=== PATIENT | female | born 1990 | race Two or more races ===

== ENCOUNTER 2019-02-16 07:26 | Emergency (ER) | payer OTHER ==
[2019-02-16 07:33] VITALS: BP 116/89
--- NOTE | 2019-02-16 07:58 | ED Physician Documentation ---
PD HPI SKIN - Stated complaint Stated Complaint: SORE ON CHIN - Chief complaint Chief Complaint: Wound - History obtained from History obtained from: Patient - History of Present Illness Timing - onset: How many days ago (4) Timing - duration: Days (4) Timing - details: Gradual onset, Still present Location: Face Quality / character: Painful, Raised, Swelling. No: Draining Associated symptoms: Headache. 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 She started the Keflex yesterday. She has not had any drainage from the area she has not had any fluctuance. She has no swelling in her face to cause some numbness to the area. Review of Systems Constitutional: denies: Fever Eyes: denies: Decreased vision Ears: denies: Ear pain Nose: reports: Congestion Throat: denies: Oral lesions / sores, Sore throat Cardiac: denies: Chest pain / pressure, Palpitations Respiratory: denies: Dyspnea, Cough PD PAST MEDICAL HISTORY - Past Medical History Past Medical History: No - Present Medications Home Medications: Ambulatory Orders Medication Instructions Recorded Confirmed Cephalexin [Keflex] 500 mg PO TID 02/16/19 02/16/19 Ibuprofen [Motrin] 600 mg PO Q6H PRN 02/16/19 02/16/19 Mupirocin 1 gm TP BID #22 gm 02/16/19 Sulfamethoxazole/Trimethoprim 1 each PO BID #14 tablet 02/16/19 [Sulfamethoxazole-Tmp Ds Tablet] - Allergies Allergies/Adverse Reactions: Allergies Allergy/AdvReac Type Severity Reaction Status Date / Time No Known Drug Allergies Allergy Verified 02/16/19 07:34 - Social History Does the pt smoke?: No Smoking Status: Never smoker PD ED PE NORMAL - Vitals Vital signs reviewed: Yes (hypertensive mild ) - General General: Alert and oriented X 3, No acute distress, Well developed/nourished - HEENT HEENT: Atraumatic, PERRL, EOMI, Other (There is an area to the right chin with swelling tenderness and firmness without fluctuance. 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 PD MEDICAL DECISION MAKING - ED course Complexity details: considered differential, d/w patient ED course: 29-year-old female with an abscess to her the right side of her chin that has not improved overnight with Keflex. On bedside exam with ultrasound there is no drainable collection. We will add in sulfamethoxazole trimethoprim and mupirocin she will continue her warm compresses and we will await ripening or improvement. Departure - Departure Disposition: 01 Home, Self Care Clinical Impression: Abscess Condition: Stable Instructions: ED Stap Infec Abx Tx Only Follow-Up: [facility] [Provider Group] Prescriptions: Mupirocin 1 gm TP BID #22 gm Sulfamethoxazole/Trimethoprim [Sulfamethoxazole-Tmp Ds Tablet] 1 each PO BID #14 tablet
== END 2019-02-16 08:42 | disposition home or self-care (01) ==
LOC: ED 07:26
DX: L02.01 Cutaneous abscess of face (principal)
CPT/HCPCS: 99282; 99284

== ENCOUNTER 2021-09-09 07:42 | Outpatient (CLI) | payer OTHER ==
--- NOTE | 2021-09-09 11:57 | MRI Report ---
PROCEDURE: Wrist RT W/O INDICATIONS: PAIN IN RIGHT HAND AND WRIST TECHNIQUE: Noncontrast coronal proton density fast spin echo and T2 fast spin echo with fat saturation; coronal 3-D gradient echo, axial T1 spin echo and T2 fast spin echo with fat saturation, sagittal T1 spin ech o through the wrist. COMPARISON: None. FINDINGS: Image quality: Excellent. Bones and cartilage: The carpal bones are normally aligned. No bone marrow contusions or fractures. No evidence for avascular necrosis. Overlying cartilage surfaces appear normal. Carpal ligaments: The scapholunate and lunotriquetral ligaments appear intact. In the absence of in tra-articular contrast, the extrinsic carpal ligaments are not well identified. On sagittal images, the pisohamate ligament appears intact. Triangular fibrocartilage complex: The triangular fibrocartilage appears intact. The adjacent menis luna homolog appears normal in the absence of intra-articular contrast. The extensor carpi ulnaris te ndon is normal in location and morphology. Tendons and soft tissues: There is fluid signal surrounding extensor digitorum and indices tendons o lc the dorsal aspect of proximal carpal row concerning for low-grade tenosynovitis. The carpal tunne l structures appear normal, including the median nerve. The ulnar nerve appears normal within Guyon' s canal. Rest of the extensor tendon compartments demonstrate normal morphology, without pathologic t endon sheath fluid. There is suggestion of a small ganglion cyst over volar aspect of radial styloid base and measures 6 x 2 x 5 mm in size. Similar possible ganglion cyst is also noted over dorsal aspe ct of the ulnar styloid base and measures up to 3 x 4 x 3 mm in size. IMPRESSION: 1. Finding is concerning for low-grade tenosynovitis involving extensor digitorum and indices tendons over the dorsal aspect of radial carpal joint and proximal carpal row. Rest of the extensor and flex or tendons are grossly intact. 2. Finding is suggestive of tiny ganglion cysts over volar aspect of radial styloid base and dorsal a spect of ulnar styloid base as above. 3. No marrow edema. No fracture or dislocation. No suspicious intraosseous lesion. 4. Intrinsic and extrinsic wrist ligaments are grossly intact. Triangular fibrocartilage complex is i ntact. Reviewed by: Rajan Garcia MD on 09/09/2021 11:56 AM PST Approved by: Rajan Garcia MD on 09/09/2021 11:56 AM PST Station ID: [id number]
--- NOTE | 2021-09-09 12:15 | MRI Report ---
PROCEDURE: Hand RT W/O INDICATIONS: PAIN IN RIGHT HAND AND WRIST TECHNIQUE: Noncontrast coronal T1 spin echo and T2 fast spin echo with fat saturation, axial proton density fast spin echo and T2 fast spin echo with fat saturation, sagittal T1 spin echo and STIR through the hand and fingers to the level of the middle phalanges of the second through fourth digits. COMPARISON: Concurrent MRI of the wrist. FINDINGS: Image quality: There is mild motion artifact and inhomogeneous fat saturation. Bones: The bones are normally aligned, without marrow contusions or fractures. No discrete bony eros ions. No intra-osseous mass lesions. Soft tissues: There is a cutaneous marker along the volar aspect of the hand between the third and f ourth metacarpals distally in the area of pain. No discrete associated mass or fluid collection ident ified. The subjacent lumbrical muscle demonstrates normal size and signal. Visualized muscles demonst rate normal bulk and internal signal. No intramuscular masses identified. The visualized flexor and extensor tendons appear intact. The carpal tunnel appears within normal limits without abnormal argelia a or mass lesions. The visualized median nerve appears normal in size and signal. The visualized ulna r nerve also appears grossly normal in size. The collateral ligaments and volar plates of the visuali zed metacarpophalangeal joints appear intact. No ganglion cysts. IMPRESSION: 1. No discrete mass, fluid collection, or other definite abnormality demonstrated in the area of foca l pain along the volar aspect of the hand. 2. No fractures or bone contusions. Reviewed by: Sharath Henderson MD on 09/09/2021 12:13 PM PST Approved by: Sharath Henderson MD on 09/09/2021 12:13 PM PST Station ID: [id number]
== END 2021-09-09 07:43 | disposition home or self-care (01) ==
LOC: DI 07:42
DX: M25.531 Pain in right wrist (principal); G56.00 Carpal tunnel syndrome, unspecified upper limb; R93.6 Abnormal findings on diagnostic imaging of limbs